=== PATIENT | female | born 1985 | race American Indian/Alaskan Native ===

== ENCOUNTER 2017-04-01 09:48 | Emergency (ER) | payer SELFPAY ==
[2017-04-01 09:59] VITALS: BP 109/71
[2017-04-01] MEDS ORDERED: NORCO 5/325 PO ONE (10:28)
[2017-04-01] MEDS ORDERED: BICILLIN L-A IM ONE (10:28)
--- NOTE | 2017-04-01 19:10 | Emergency Department Report ---
Entered by AISSATOU BORGES, acting as scribe for DORA SCHMIDT NP. ED ENT HPI - General Chief complaint: Dental/Oral Stated complaint: TOP LIP SWELLING AND ITCHING Time Seen by Provider: 04/01/17 10:07 Source: patient Mode of arrival: Ambulatory Limitations: No Limitations - History of Present Illness complaint: tooth pain -: Gradual Severity: moderate Consistency: constant Context- Dental: history of dental caries, trauma, poor dental care, other ( SINCE CHILD SLOAN) Associated Symptoms: gum swelling, toothache. denies: fever, cough, pain with swallowing, sore throat, tinnitus, hearing loss, discharge from ear, rhinorrhea - Related Data Previous Rx's Medication Instructions Recorded Last Taken Type Amoxicillin [Trimox CAP] 500 mg PO Q8H #30 capsule 04/01/17 Unknown Rx traMADol [Ultram] 50 mg PO Q6HR PRN #10 tablet 04/01/17 Unknown Rx Allergies Allergy/AdvReac Type Severity Reaction Status Date / Time No Known Allergies Allergy Unverified 04/01/17 09:56 ED Dental HPI - General Chief complaint: Dental/Oral Stated complaint: TOP LIP SWELLING AND ITCHING Time Seen by Provider: 04/01/17 10:07 Source: patient Mode of arrival: Ambulatory Limitations: No Limitations - History of Present Illness Initial comments: 31 y/o female with no significant PMHx presents to the ED c/o right front upper dental pain that began 1 month ago, worsening this morning. Rates pain a 10/10 in severity, which she describes as aching, throbbing, and sharp in quality. Aggravated with chewing and eating, and alleviated with nothing. Associated symptom includes upper lip swelling, but she denies fever, chills, nausea, vomiting, headache, ear pain, and sore throat. Notes she has an abscess to front upper mouth due to fractured tooth #8 that occurred 1 month ago. Denies following up with an oral surgeon referred by her dentist due to financial reasons. Uses tobacco products daily. NKDA. WILL complaint: tooth pain Onset/Timin -: month(s) Severity: severe Quality: aching, sharp, other (throbbing) Consistency: constant Improves with: none Worsens with: eating, chewing Context- Dental: history of dental caries, poor dental care Dental Associated Symptons: No: Headache, Earache, Sore Throat, Gum Swelling, Fever - Related Data Previous Rx's Medication Instructions Recorded Last Taken Type Amoxicillin [Trimox CAP] 500 mg PO Q8H #30 capsule 04/01/17 Unknown Rx traMADol [Ultram] 50 mg PO Q6HR PRN #10 tablet 04/01/17 Unknown Rx Allergies Allergy/AdvReac Type Severity Reaction Status Date / Time No Known Allergies Allergy Unverified 04/01/17 09:56 ED Review of Systems Comment: All other systems reviewed and negative Constitutional: no symptoms reported, see HPI. denies: chills, fever Eyes: as per HPI. denies: eye pain, eye discharge, vision change ENT: as per HPI, dental pain (right front upper), other (upper lip swelling). denies: ear pain, throat pain, hearing loss, epistaxis, congestion Respiratory: no symptoms reported, see HPI. denies: cough, shortness of breath , wheezing Cardiovascular: as per HPI. denies: chest pain, palpitations Endocrine: no symptoms reported, see HPI. denies: excessive sweating, flushing , intolerance to cold, intolerance to heat Gastrointestinal: as per HPI. denies: abdominal pain, nausea, diarrhea Genitourinary: as per HPI. denies: urgency, dysuria, discharge Musculoskeletal: denies: back pain, joint swelling, arthralgia Skin: as per HPI. denies: rash, lesions Neurological: as per HPI. denies: headache, weakness, paresthesias Psychiatric: as per HPI. denies: anxiety, depression Hematological/Lymphatic: denies: easy bleeding, easy bruising ED Past Medical Hx - Past Medical History Previous Medical History?: No - Surgical History Past Surgical History?: No - Family History Family history: no significant - Social History Smoking Status: Current Every Day Smoker Substance Use Type: None - Medications Home Medications: Home Medications Medication Instructions Recorded Confirmed Last Taken Type Amoxicillin [Trimox CAP] 500 mg PO Q8H #30 capsule 04/01/17 Unknown Rx traMADol [Ultram] 50 mg PO Q6HR PRN #10 tablet 04/01/17 Unknown Rx ED Physical Exam - General Limitations: No Limitations General appearance: alert, in no apparent distress - Head Head exam: Present: atraumatic, normocephalic - Eye Eye exam: Present: normal appearance, PERRL, EOMI Pupils: Present: normal accommodation - ENT ENT exam: Present: normal orophraynx, mucous membranes moist, normal external ear exam. Absent: normal exam - Expanded ENT Exam Expanded Ear exam: Present: normal external inspection Mouth exam: Present: normal external inspection, tongue normal. Absent: drooling, trismus, muffled voice, tongue elevation, laceration Teeth exam: Present: dental caries (diffusely), fractured tooth # (8), other ( no oral abscesses or lip/facial swelling present). Absent: normal inspection, dental tenderness #, gingival enlargement Throat exam: Positive: normal inspection - Neck Neck exam: Present: normal inspection, full ROM. Absent: tenderness, meningismus, lymphadenopathy, thyromegaly - Respiratory Respiratory exam: Present: normal lung sounds bilaterally. Absent: respiratory distress, wheezes, rales, rhonchi, stridor - Cardiovascular Cardiovascular Exam: Present: regular rate, normal rhythm. Absent: systolic murmur, diastolic murmur, rubs, gallop - GI/Abdominal GI/Abdominal exam: Present: soft, normal bowel sounds - Extremities Exam Extremities exam: Present: normal inspection - Back Exam Back exam: Present: normal inspection - Neurological Exam Neurological exam: Present: alert, oriented X3 - Psychiatric Psychiatric exam: Present: normal affect, normal mood - Skin Skin exam: Present: warm, dry, intact, normal color. Absent: rash ED Course Vital Signs 04/01/17 09:56 Temperature 98.5 F Pulse Rate 82 Respiratory 16 Rate Blood Pressure 109/71 O2 Sat by Pulse 100 Oximetry ED Disposition Clinical Impression: Dental caries Disposition: DC- TO HOME OR SELFCARE Is pt being admited?: No Does the pt Need Aspirin: No Condition: Stable Instructions: Dental Caries (ED) Additional Instructions: good oral care DMD KAREEN MED ORDERED MOTRIN OR TYLENOL FOR MILD PAIN ULTRAM FOR SEVERE PAIN Prescriptions: Amoxicillin [Trimox CAP] 500 mg PO Q8H #30 capsule traMADol [Ultram] 50 mg PO Q6HR PRN #10 tablet PRN Reason: Pain Referrals: [facility] [Outside] - 3-5 Days [facility] [Outside] - 3-5 Days Time of Disposition: 10:34 This documentation as recorded by the KATERINA aguillon JASMINE,accurately reflects the service I personally performed and the decisions made by me,DORA SYLVESTER NP.
== END 2017-04-01 11:17 | disposition home or self-care (01) ==
LOC: ED 09:48
DX: K02.9 Dental caries, unspecified (principal); F17.200 Nicotine dependence, unspecified, uncomplicated
CPT/HCPCS: 96372; 99282; J0561

== ENCOUNTER 2017-08-15 21:11 | Emergency (ER) | payer SELFPAY ==
[2017-08-15 22:31] LABS: Bacteria,Urine 4+ /HPF (Negative); Bilirubin,Urine NEG (Negative); Blood,Urine LG (Negative); Color,Urine Amber (Yellow); Mucus,Urine 3+ /HPF; Nitrite,Urine POS (Negative); Urobilinogen,Urine < 2.0 mg/dL (<2.0)
[2017-08-15 22:33] LABS: HCG Qualitative,Urine Negative (Negative)
[2017-08-15 22:36] LABS: BUN/Creatinine Ratio 17; Blood Urea Nitrogen 10 mg/dL (7-17); Calcium 8.1 mg/dL (8.4-10.2); Hemolysis Index 10
[2017-08-15 22:39] LABS: Basophils % (Auto) 0.5 % (0.0-1.8); Eosinophils % (Auto) 0.2 % (0.0-4.3); Hematocrit 49.1 % (30.3-42.9); Lymphocytes # (Auto) 0.9 K/mm3 (1.2-5.4); Lymphocytes % (Auto) 23.4 % (13.4-35.0); Mean Corpuscular HGB Conc 33 % (30-34); Mean Corpuscular Hemoglobin 29 pg (28-32); Mean Corpuscular Volume 89 fl (79-97); Monocytes # (Auto) 0.3 K/mm3 (0.0-0.8); Monocytes % (Auto) 6.7 % (0.0-7.3); Platelet Count 142 K/mm3 (140-440); Red Blood Count 5.53 M/mm3 (3.65-5.03); Red Cell Distribution Width 13.4 % (13.2-15.2)
--- NOTE | 2017-08-15 23:02 | XRay Report ---
FINAL REPORT PROCEDURE: XR CHEST ROUTINE 2V TECHNIQUE: PA and lateral chest radiographs were obtained. CPT 81554 HISTORY: shortness of breath COMPARISON: No prior studies are available for comparison. FINDINGS: Heart: Normal. Mediastinum/Vessels: Normal. Lungs/Pleural space: Normal. Bony thorax: No acute osseous abnormality. Other: IMPRESSION: Normal examination.
[2017-08-16 02:39] VITALS: BP 107/76
[2017-08-16] MEDS ORDERED: TYLENOL PO ONE (03:01)
[2017-08-16] MEDS ORDERED: ZOFRAN ODT PO ONE (03:01)
[2017-08-16] MEDS ORDERED: MOTRIN PO ONE (03:01)
--- NOTE | 2017-08-16 03:03 | Emergency Department Report ---
ED General Adult HPI - General Chief complaint: Dyspnea/Respdistress Stated complaint: SOB Time Seen by Provider: 08/16/17 02:54 Source: patient, RN notes reviewed Mode of arrival: Ambulatory Limitations: No Limitations - History of Present Illness Initial comments: This is a 32-year-old female who was previously unknown to this provider, reports a past medical history of asthma, presents to the ER with body aches, cough, wheezing, decreased appetite, malaise and fatigue, shortness of breath. Symptoms present for over 4 days. They're constant. They worse with physical exertion and when she attempts to eat. They decrease with rest. Patient denies irritative, obstructive urinary symptoms. -: Gradual, days(s) Location: back, left, right, upper extremity, lower extremity Quality: aching Consistency: constant Improves with: none Worsens with: none Associated Symptoms: cough, fever/chills, loss of appetite, malaise, nausea/ vomiting, weakness - Related Data Previous Rx's Medication Instructions Recorded Last Taken Type Amoxicillin [Trimox CAP] 500 mg PO Q8H #30 capsule 04/01/17 Unknown Rx traMADol [Ultram] 50 mg PO Q6HR PRN #10 tablet 04/01/17 Unknown Rx Acetaminophen [Tylenol Arthritis] 650 mg PO Q6HR PRN #30 tablet.er 08/16/17 Unknown Rx Albuterol Sulfate [Proair 90 mcg IH Q4HR PRN #2 aer.pow.ba 08/16/17 Unknown Rx Respiclick] Ibuprofen [Motrin] 600 mg PO Q8H PRN #30 tablet 08/16/17 Unknown Rx Nitrofurantoin [place]/M-Cryst 100 mg PO Q12HR #14 capsule 08/16/17 Unknown Rx [Macrobid CAP] Ondansetron [Zofran Odt] 4 mg PO Q8HR PRN #20 tab.rapdis 08/16/17 Unknown Rx Allergies Allergy/AdvReac Type Severity Reaction Status Date / Time No Known Allergies Allergy Unverified 04/01/17 09:56 ED Review of Systems ROS: Stated complaint: SOB Other details as noted in HPI ED Past Medical Hx - Past Medical History Previous Medical History?: No Hx Asthma: Yes - Social History Smoking Status: Current Every Day Smoker Substance Use Type: None - Medications Home Medications: Home Medications Medication Instructions Recorded Confirmed Last Taken Type Amoxicillin [Trimox CAP] 500 mg PO Q8H #30 capsule 04/01/17 Unknown Rx traMADol [Ultram] 50 mg PO Q6HR PRN #10 tablet 04/01/17 Unknown Rx Acetaminophen [Tylenol Arthritis] 650 mg PO Q6HR PRN #30 tablet.er 08/16/17 Unknown Rx Albuterol Sulfate [Proair 90 mcg IH Q4HR PRN #2 aer.pow.ba 08/16/17 Unknown Rx Respiclick] Ibuprofen [Motrin] 600 mg PO Q8H PRN #30 tablet 08/16/17 Unknown Rx Nitrofurantoin [place]/M-Cryst 100 mg PO Q12HR #14 capsule 08/16/17 Unknown Rx [Macrobid CAP] Ondansetron [Zofran Odt] 4 mg PO Q8HR PRN #20 tab.rapdis 08/16/17 Unknown Rx ED Physical Exam - General Limitations: No Limitations General appearance: alert, in no apparent distress - Head Head exam: Present: atraumatic, normocephalic - Eye Eye exam: Present: normal appearance, EOMI - ENT ENT exam: Present: normal exam, normal orophraynx, mucous membranes moist, TM's normal bilaterally, normal external ear exam - Neck Neck exam: Present: normal inspection, full ROM - Respiratory Respiratory exam: Present: normal lung sounds bilaterally. Absent: respiratory distress - Cardiovascular Cardiovascular Exam: Present: regular rate, normal rhythm, normal heart sounds. Absent: systolic murmur, diastolic murmur, rubs, gallop - GI/Abdominal GI/Abdominal exam: Present: soft, normal bowel sounds. Absent: distended, tenderness, guarding, rebound, rigid, pulsatile mass - Extremities Exam Extremities exam: Present: normal inspection, full ROM, normal capillary refill. Absent: pedal edema, joint swelling, calf tenderness - Back Exam Back exam: Present: normal inspection, full ROM. Absent: tenderness, CVA tenderness (R), paraspinal tenderness, vertebral tenderness - Neurological Exam Neurological exam: Present: alert, oriented X3, CN II-XII intact, normal gait, other (Extraocular movements intact. Tongue midline. No facial droop. Facial sensation intact to light touch in the V1, V2, V3 distribution bilaterally. 5 and 5 strength in 4 extremities.. Sensation is intact to light touch in 4 extremities.). Absent: motor sensory deficit - Psychiatric Psychiatric exam: Present: anxious - Skin Skin exam: Present: warm, dry, intact, normal color. Absent: rash ED Course Vital Signs 08/15/17 08/16/17 21:29 02:25 Temperature 99.8 F H 98.9 F Pulse Rate 109 H 89 Respiratory 20 20 Rate Blood Pressure 111/78 107/76 O2 Sat by Pulse 96 100 Oximetry - Reevaluation(s) Reevaluation #1: 08/16/17 05:06 Clean-catch urinalysis does suggest urinary tract infection. While the patient does not endorse typical symptoms, she does not have CVA tenderness, she'll be covered empirically with Macrobid. She is tolerating liquid feedings at this time, and will be discharged. ED Medical Decision Making - Lab Data Result diagrams: 08/15/17 Unknown 08/15/17 Unknown Vital Signs 08/15/17 08/16/17 21:29 02:25 Temperature 99.8 F H 98.9 F Pulse Rate 109 H 89 Respiratory 20 20 Rate Blood Pressure 111/78 107/76 O2 Sat by Pulse 96 100 Oximetry Lab Results 08/15/17 08/15/17 08/15/17 Range/Units Unknown Unknown Unknown WBC 3.9 L (4.5-11.0) K/mm3 RBC 5.53 H (3.65-5.03) M/mm3 Hgb 16.0 H (10.1-14.3) gm/dl Hct 49.1 H (30.3-42.9) % MCV 89 (79-97) fl MCH 29 (28-32) pg MCHC 33 (30-34) % RDW 13.4 (13.2-15.2) % Plt Count 142 (140-440) K/mm3 Lymph % (Auto) 23.4 (13.4-35.0) % [place] % (Auto) 6.7 (0.0-7.3) % Eos % (Auto) 0.2 (0.0-4.3) % Baso % (Auto) 0.5 (0.0-1.8) % Lymph # 0.9 L (1.2-5.4) K/mm3 [place] # 0.3 (0.0-0.8) K/mm3 Eos # 0.0 (0.0-0.4) K/mm3 Baso # 0.0 (0.0-0.1) K/mm3 Seg Neutrophils % 69.2 (40.0-70.0) % Seg Neutrophils # 2.7 (1.8-7.7) K/mm3 Sodium 133 L (137-145) mmol/L Potassium 3.9 (3.6-5.0) mmol/L Chloride 94.2 L (98-107) mmol/L Carbon Dioxide 20 L (22-30) mmol/L Anion Gap 23 mmol/L BUN 10 (7-17) mg/dL Creatinine 0.6 L (0.7-1.2) mg/dL Estimated GFR > 60 ml/min BUN/Creatinine Ratio 17 % Glucose 94 (65-100) mg/dL Lactic Acid 1.40 (0.7-2.0) mmol/L Calcium 8.1 L (8.4-10.2) mg/dL Troponin T (0.00-0.029) ng/mL Urine Color (Yellow) Urine Turbidity (Clear) Urine pH (5.0-7.0) Ur Specific [place] (1.003-1.030) Urine Protein (Negative) mg/dL Urine Glucose (UA) (Negative) mg/dL Urine Ketones (Negative) mg/dL Urine Blood (Negative) Urine Nitrite (Negative) Urine Bilirubin (Negative) Urine Urobilinogen (<2.0) mg/dL Ur Leukocyte Esterase (Negative) Urine WBC (Auto) (0.0-6.0) /HPF Urine RBC (Auto) (0.0-6.0) /HPF U Epithel Cells (Auto) (0-13.0) /HPF Urine Bacteria (Auto) (Negative) /HPF Urine Mucus /HPF Urine HCG, Qual (Negative) 08/15/17 08/16/17 Range/Units Unknown 03:00 WBC (4.5-11.0) K/mm3 RBC (3.65-5.03) M/mm3 Hgb (10.1-14.3) gm/dl Hct (30.3-42.9) % MCV (79-97) fl MCH (28-32) pg MCHC (30-34) % RDW (13.2-15.2) % Plt Count (140-440) K/mm3 Lymph % (Auto) (13.4-35.0) % [place] % (Auto) (0.0-7.3) % Eos % (Auto) (0.0-4.3) % Baso % (Auto) (0.0-1.8) % Lymph # (1.2-5.4) K/mm3 [place] # (0.0-0.8) K/mm3 Eos # (0.0-0.4) K/mm3 Baso # (0.0-0.1) K/mm3 Seg Neutrophils % (40.0-70.0) % Seg Neutrophils # (1.8-7.7) K/mm3 Sodium (137-145) mmol/L Potassium (3.6-5.0) mmol/L Chloride (98-107) mmol/L Carbon Dioxide (22-30) mmol/L Anion Gap mmol/L BUN (7-17) mg/dL Creatinine (0.7-1.2) mg/dL Estimated GFR ml/min BUN/Creatinine Ratio % Glucose (65-100) mg/dL Lactic Acid (0.7-2.0) mmol/L Calcium (8.4-10.2) mg/dL Troponin T < 0.010 (0.00-0.029) ng/mL Urine Color [place] (Yellow) Urine Turbidity Cloudy (Clear) Urine pH 6.0 (5.0-7.0) Ur Specific [place] 1.028 (1.003-1.030) Urine Protein 100 mg/dl (Negative) mg/dL Urine Glucose (UA) Neg (Negative) mg/dL Urine Ketones 20 (Negative) mg/dL Urine Blood Lg (Negative) Urine Nitrite Pos (Negative) Urine Bilirubin Neg (Negative) Urine Urobilinogen < 2.0 (<2.0) mg/dL Ur Leukocyte Esterase Tr (Negative) Urine WBC (Auto) 15.0 H (0.0-6.0) /HPF Urine RBC (Auto) 4.0 (0.0-6.0) /HPF U Epithel Cells (Auto) 20.0 H (0-13.0) /HPF Urine Bacteria (Auto) 4+ (Negative) /HPF Urine Mucus 3+ /HPF Urine HCG, Qual Negative (Negative) - EKG Data When compared to previous EKG there are: previous EKG unavailable 08/16/17 04:17 Normal sinus, 93 beats minute, normal intervals, normal axis, unremarkable EKG, not morphologically consistent with ST elevation myocardial infarction - Radiology Data Radiology results: report reviewed, image reviewed X-ray the chest is negative for acute disease - Medical Decision Making Differential diagnosis, including but not limited to: Viral syndrome, pneumonia , influenza-like illness, viral syndrome Assessment and plan: 32-year-old female with probable influenza-like illness. She additionally has a low-grade temperature and is tachycardic, however these have resolved. She endorses no pulmonary embolus or DVT risk factors, she is low risk by well's criteria, myocarditis, pericarditis very unlikely given resolution of tachycardia, normal EKG, lack of fever, and normal troponin. She is currently tolerating oral feeds without difficulty. An initial urinalysis suggested UTI but she did not have urinary symptoms and a urine sample was contaminated. A clean catch urine sample has been sent and the results are pending. Critical care attestation.: If time is entered above; I have spent that time in minutes in the direct care of this critically ill patient, excluding procedure time. ED Disposition Clinical Impression: Influenza-like illness Disposition: DC-01 TO HOME OR SELFCARE Is pt being admited?: No Does the pt Need Aspirin: No Condition: Good Instructions: Influenza (ED), Urinary Tract Infection in Women (ED) Additional Instructions: Cultures were sent today, results will be available next 3-5 days. Have a primary care doctor contact the medical records department to obtain culture results. Take medications as needed/directed. Follow-up with her primary care doctor within the next week. Return to the ER right away with new pain, worsened pain, migration of pain, intractable nausea or vomiting, confusion, inability to tolerate liquid feeds, new, worsening or different symptoms. Referrals: PRIMARY MD ISIDORO [Primary Care Provider] - 3-5 Days JOSE GAMEZ MD [Staff Physician] - 3-5 Days [facility] [Provider Group] - 3-5 Days
[2017-08-16 04:22] LABS: Bacteria,Urine 4+ /HPF (Negative); Bilirubin,Urine NEG (Negative); Blood,Urine MOD (Negative); Color,Urine Yellow (Yellow); Mucus,Urine 3+ /HPF; Nitrite,Urine POS (Negative); Urobilinogen,Urine < 2.0 mg/dL (<2.0)
== END 2017-08-16 03:15 | disposition home or self-care (01) ==
LOC: ED 21:11
DX: M79.1 Myalgia (principal); R05 Cough; J45.909 Unspecified asthma, uncomplicated; F17.200 Nicotine dependence, unspecified, uncomplicated
CPT/HCPCS: 36415; 71046; 80048; 81001; 81025; 82140; 84484; 85025; 87040; 87076; 87086; 87186; 87400; 93005; 93010; 99284; Q0162